=== PATIENT | male | born 1950 | race African-American/Black ===

== ENCOUNTER 2024-12-09 15:49 | Inpatient (IN) | payer MEDICARE, SELFPAY ==
[2024-12-06] VITALS (10 sets, daily range): BP systolic 75–148; BP diastolic 46–80; PULSE 63–109; BMI 25.2; BMI 25.0
[2024-12-06 12:01] LABS: % Basophils 0.7 % (0-2); % Immature Granulocytes 0.4 % (0-0.5); % Monocytes 11.6 % (1.7-9.3); % Neutrophils 70.3 % (42.2-75.2); Absolute Basophils 0.1 10^3/uL (0-0.2); Absolute Eosinophils 0.4 10^3/uL (0-0.7); Absolute Immature Granulocytes 0.1 10^3/uL (0-0.05); Absolute Lymphocytes 1.8 10^3/uL (1.2-3.4); Absolute Monocytes 1.5 10^3/uL (0.1-0.6); Absolute Neutrophils 9.1 10^3/uL (1.4-6.5); Hematocrit 41.5 % (39.0-52.0); Hemoglobin 14.2 g/dL (13.0-18.0); Mean Corp Hgb Conc. 34.2 g/dL (33.0-37.0); Mean Corpuscular Hgb 33.9 pg (27.0-31.0); Mean Platelet Volume 9.2 fL (7.4-10.4); Nucleated Red Blood Cells % 0 % (-); Platelet Count 260 10^3/uL (130-400); Red Blood Cell Count 4.19 10^6/uL (4.70-6.10); Red Cell Dist. Width 11.7 % (11.5-14.5); White Blood Cell Count 12.9 10^3/uL (4.8-10.8)
[2024-12-06 12:13] LABS: ALT (SGPT) 17 U/L (0-50); AST (SGOT) 34 U/L (17-59); Alkaline Phosphatase 58 U/L (38-126); Blood Urea Nitrogen 27 mg/dl (9-20); Calcium 9.3 mg/dl (8.4-10.2); Carbon Dioxide 28 mmol/L (22-30); Chloride 101 mmol/L (98-107); Glucose 126 mg/dl (70-99); Potassium 4.6 mmol/L (3.5-5.1); Sodium 138 mmol/L (135-145); Total Bilirubin 0.8 mg/dl (0.2-1.3); Total Protein 7.3 g/dl (6.3-8.2); eGFR 42.04
[2024-12-06 12:22] LABS: Troponin I 0.096 ng/ml
[2024-12-06] MEDS: NSS 1000 IV (13:13)
--- NOTE | 2024-12-06 13:18 | ED.GENMED ---
History of Present Illness
General
Chief Complaint: Weakness
Source: patient and spouse ( at bedside)
Exam Limitations: none
Time Seen by Provider: 12/06/24 12:40
Nursing documentation reviewed up to this point in time: agreed with
History of Present Illness
History of Present Illness:
Patient is a 74-year-old male with history of orthostatic hypotension, newly diagnosed amyloid presenting to the emergency department with syncopal events and exertional shortness of breath worse over the past 5 days. Patient states that over the
weekend he has had multiple episodes of sudden syncope. These do typically occur briefly after going from sitting to standing although he denies any prodrome prior to syncope including chest pain, shortness of breath, dizziness/lightheadedness,
nausea. Patient states he has hit his head. He reports that he has felt extremely weak and noticing significant shortness of breath with very minimal exertion over the past week as well.
No fevers. He has had mild cough with red streaking�his assistant community director started him on a Z-Jonathon a few days ago. He does report very intermittent and mild left sided chest pain although no clear exertional component to this. No abdominal pain or
tearing back pain. He does have some pain in his left lower back after one of the syncopal events this past weekend. No numbness/tingling or weakness in lower extremities.
He does have a history of orthostatic hypotension and syncope although since starting midodrine these become much less frequent.
Review of Systems
Review of Systems
Allergies reviewed?: Yes
All Other Systems: ROS reviewed and negative except as documented in HPI and ROS
Phy Exam
Physical Exam
Physical Exam:
Vitals: Patient's vital signs are stable
General: Patient is well appearing, no acute distress
Skin: Warm and dry, no rashes or lesions
Head: Normocephalic, atraumatic
Eyes: Sclera nonicteric. EOMs intact. No nystagmus.
Throat: Protecting airway
Neck: Normal ROM, no cervical spine tenderness, no meningismus
Cardiac: Regular rate and rhythm, no murmurs.
Pulm: Normal respiratory effort, no wheezes, rales, rhonchi heard on exam. O2 saturation 98 on room air
Abdomen: Abdomen soft and nontender.
Back: No midline spinal tenderness. Mild pain in left lower limb lumbar spine. No rash or ecchymoses
Extremities: No evidence of cyanosis or edema. Palpable DP pulses bilaterally
Neuro: AAOx3. Grossly intact.
Psychiatric: Normal affect.
Course
Orders/Labs/Results
Orders:
Orders
12/06/24 11:45
Electrocardiogram (*1) Urgent
Reason for Study: Syncope
12/06/24 11:46
EKG- Treatment ONCE
12/06/24 11:50
Complete Blood Count/With Diff Urgent
Comprehensive Metabolic Panel Urgent
NT-proBNP Urgent
Comment: ADD ON
Troponin I Urgent
12/06/24 13:02
CT Chest PE Study Urgent
Comment:
Reason For Exam: Exertional shortness of breath, syncope
0.9% Sodium Chloride 1000 ml [Nss] 1,000 ml IV BOLUS
12/06/24 13:03
CT Head W/o Iv Contrast Urgent
Comment:
Reason For Exam: unwitnessed syncope w/ head strike
12/06/24 Dinner
Regular
At Your Request: Full Participation
Does patient need a safe tray?: No
12/06/24 15:20
Electrocardiogram (*1) Urgent
Reason for Study: Syncope
EKG- Treatment ONCE
12/06/24 15:30
Troponin I Urgent
12/06/24 16:59
Acetaminophen [Tylenol] 650 mg PO NOW STA
Lidocaine [Lidocaine 4% Patch] 1 patch TOPICAL NOW STA
Apply Lidocaine patch(s) to:: back
12/06/24 19:29
Urine Culture Reflexed from UA [Urinalysis Reflex To Culture] Routine
12/06/24 19:35
Admit/Transfer Patient As Directed
Co-Sign Provider:
Level of Care: Observation services
Assign to:: Telemetry
Physician / Group: Julia Fernandez
Diagnosis: syncope, bradycardia, ARIAS
Reason for Telemetry: Arrhythmia
Date to Stop Telemetry: 12/09/24
Time to Stop Telemetry: 11:00
Reason for Hospitalization: syncope, bradycardia, ARIAS
PRN Pain Medication Management As Directed
May give lesser potent ordered pain med per pt: Yes
preference::
Protocol:: Medication orders for pain may be administered in a
manner that supports deferring to patient preference
when the pt is:
- Requesting an ordered lesser potent pain medication.
Least to most potent pain medications are defined
as: acetaminophen < NSAID < tramadol < opioids
(morphine, oxycodone, hydromorphone).
- Requesting a lesser dose of the same medication IF
ORDERED.
- Requesting a less intrusive route of administration
if both routes are prescribed by the provider (PO <
IV).
12/06/24 19:37
Code Status As Directed
Resuscitation Status: Full Code
12/06/24 19:54
COVID-19 Antigen Routine
Source: Nasal Swab
Influenza A+B Rapid Molecular Routine
NOEMY Source: Nasal Swab
Specimen Description:
12/06/24 21:08
Acetaminophen [Tylenol] 650 mg PO Q4HPRN PRN
Budesonide/Formoterol 80/4.5 [Symbicort 80/4.5 Mcg Inhaler] 2 puff INH R BIDPRN PRN
Lamotrigine [Lamictal] 50 mg PO BID
acoramidis [Attruby] See Dose Instructions PO BID
12/06/24 21:08
CARDIOLOGY CONSULT Routine
Consulting Provider: Darrell Iglesias
Was physician already notified: Yes
Activity As Directed
Activity Level: Out of Bed-Early Mobility
Intake/ Output As Directed
Frequency: Per unit guidelines
Orthostatic Vital Signs As Directed
Orthostatic VS Frequency: BID
Records Request [Obtain Records] As Directed
Dates of Information to be Released: 2024
Type of Information Requested: Entire Record
If Other, list type of info requested: all cardiac records
Obtain Records from: [facility]
Vital Signs As Directed
Frequency: Per unit guidelines
Weight As Directed
Frequency: Once
Comment: on admission
Pt Eval And Treat Routine
Activity Level: Out of Bed-Early Mobility
DX Deep Vein Thrombosis Video Routine
12/07/24 00:00
Heparin 5,000 units SC Q8
12/07/24 06:00
Echo 2D MMode Color/Doppler IN AM
Reason for Study: syncope
Basic Metabolic Panel IN AM
Complete Blood Count/No Diff IN AM
Cortisol, Random IN AM
Magnesium IN AM
TSH IN AM
12/07/24 08:00
Multivitamin [Theragran] 1 tablet PO DAILY
12/09/24 11:00
DC Protocol for Telemetry ONCE
Abnormal Lab Results
12/06/24 12/06/24
11:50 15:30
WBC 12.9 H 10^3/uL
(4.8-10.8)
RBC 4.19 L 10^6/uL
(4.70-6.10)
MCV 99.0 H fL
(80.0-94.0)
MCH 33.9 H pg
(27.0-31.0)
Abs Immat Gran (auto) 0.1 H 10^3/uL
(0-0.05)
Absolute Neuts (auto) 9.1 H 10^3/uL
(1.4-6.5)
Absolute Monos (auto) 1.5 H 10^3/uL
(0.1-0.6)
Lymphocytes % 14.0 L %
(20.5-51.1)
Monocytes % 11.6 H %
(1.7-9.3)
BUN 27 H mg/dl
(9-20)
Creatinine 1.7 H mg/dL
(0.7-1.3)
Glucose 126 H mg/dl
(70-99)
Troponin I 0.096 H* ng/ml 0.079 H* ng/ml
12/06/24 11:50
12/06/24 11:50
Vital Signs
Initial and Last Documented VS:
Initial Vital Signs
Temp Pulse Resp Pulse Ox
97.6 F 58 16 98
12/06/24 11:42 12/06/24 11:42 12/06/24 11:42 12/06/24 11:42
Last Documented Vital Signs
Temp Pulse Resp BP Pulse Ox
99.0 F 109 16 114/58 98
12/06/24 21:05 12/06/24 21:05 12/06/24 21:05 12/06/24 21:05 12/06/24 21:05
MDM/Problems Addressed
Differential Diagnosis Includes:
Not limited to: Cardiac arrhythmia, valvular abnormality including aortic stenosis, pulmonary embolism, pneumonia, acute coronary syndrome, acute, orthostatic hypotension,
MDM/Problems Addressed:
74-year-old male presenting with syncopal events and exertional shortness of breath, worse over the past few days. No exertional chest pain or lower extremity edema. No fever or cough. He does have lower back pain s/p fall although no neurologic
symptoms. Patient has stable vital signs and is afebrile on arrival. Physical exam as above. Patient well-appearing, in no distress. Cardia/pulmonary assessment unremarkable. Abdomen soft and nontender throughout. No lower extremity edema.
Mild tenderness in left paraspinal region without findings of cauda equina on exam. Basic labs were sent in triage significant for a leukocytosis of 12.9. Mild renal insufficiency noted which apparently is baseline. Troponin elevated at 0.096,
EKG without acute ischemic changes. Concern for cardiac syncope given no prodromal symptoms. Other considerations include pulmonary embolism, valvular abnormality. Lower suspicion for acute coronary syndrome although will trend troponin. Patient
was recently diagnosed with amyloid cardiomyopathy which may be contributing to majority of symptoms. Given syncopal events, exertional shortness of breath, and elevated troponin�will send patient for CTA chest. Will check head CT given syncopal
events with associated head strike. Will add on proBNP and trend troponin.
Update: CTA chest/head without acute findings. BNP of 1800�patient does not appear fluid overloaded on exam. Repeat troponin slightly decreased to 0.079. EKG remains without acute ischemic changes. Ultimately�do not suspect acute coronary
syndrome however given sudden syncopal events concern for cardiac dysrhythmia or valvular abnormality -feel patient to be admitted for cardiology consult, cardiac echo, and further monitoring. Patient admitted to hospital service in stable
condition.
Chronic conditions affecting care:
Orthostatic hypotension
Acute Exacerbation and/or Progression of Chronic Illness:
N/A
*Radiology
Radiology exam reviewed: preliminary read by ED provider (Head CT reviewed by me-no acute findings) and radiology read reviewed
*Pulse Oximetry
Patient hypoxic: no
*EKG
Interpreted by ED Provider?: Yes
EKG Intrepretation Date: 12/06/24
Interpretation: abnormal
Comparison EKG: no changes
Heart Rate: 69
Rate: normal
Rhythm: junctional
[place]: normal axis
Interval: normal QT interval
QRS Pattern: right bundle branch block
Ischemia: no ischemia
*Log Truck Driver Interpretation
Rate: normal
Interpretation: normal
Heart Rate: 56
Rhythm: sinus
*Critical Care Note
Total Time (30-74mins, 75-104mins- exclusive of procedures): Not Applicable
Patient Management
Discussion with other providers: Hospitalist
Escalation/DeEscalation of care consider admission/obs:
Admit for cardiology consult, cardiac echo, further monitoring
ED Attending Note
-
Portions of this chart may have been created with voice recognition software.� Occasional wrong word or��sound alike� substitutions may have occurred due to the inherent limitations of voice recognition software.
Discharge Plan
Departure
Patient Disposition: Admit
Date of Disposition: 12/06/24
Time of Disposition: 16:42
Presentation/result/management discussed w/ accepting MD/DO: Hospitalist
Discharge Problem:
Syncope, Exertional dyspnea, Elevated troponin
Interventions
Interventions:
*Risk Screen - Suicide Last Done: 12/06/24 21:32
*General Assessment Last Done: 12/06/24 13:05
*Neglect/Abuse Screening Last Done: 12/06/24 11:42
*ED- Fall Risk Assessment Last Done: 12/06/24 13:05
*ED COVID-19 Vaccine History Last Done: 12/06/24 21:32
*Nursing Disposition Last Done: 12/06/24 21:12
ED- Cardiac Assessment Last Done: 12/06/24 13:15
ED- Neurological Assessment Last Done: 12/06/24 13:15
ED- Pulmonary Assessment Last Done: 12/06/24 13:15
Discharge Date and Time
Discharge Date/Time: 12/06/24 21:13
[2024-12-06 13:50] LABS: NT-proBNP 1800 pg/ml
[2024-12-06 16:10] LABS: Troponin I 0.079 ng/ml
[2024-12-06] MEDS: TYLENOL 650 MG PO (17:11)
[2024-12-06] MEDS: LIDOCAINE 4% PATCH 1 PATCH TOPICAL (17:11)
--- NOTE | 2024-12-06 18:26 | HPS.HSE ---
Family Physician
-
Family Physician: Amrik Saavedra MD
Chief Complaint
-
syncope
History of Present Illness
Patient is a 74-year-old male with past medical history significant for amyloid cardiomyopathy, orthostatic hypotension, CKD, asthma and mood disorder who presented to [facility] ED following a syncopal episode. Patient reports syncopal
episodes in the past related to orthostatic hypotension starting around 2019 and placed on midodrine. He expresses these episodes have gotten worse and are different in the last 5 days. He reports associated exertional shortness of breath in the
last 5 days. Patient denies any prodrome prior to syncope including chest pain, heart palpitations or lightheadedness. Patient reports that he has noticed he is significantly weaker in the past week than previously. He does report falls with head
strike but does not feel he has ever been 'completely out,' when he has these recent episodes. Patient states he just completed a z-pack from digital sales director following increased congestion.
Medical History
Past Medical History
Past Medical History: Reports Other
Additional Past Medical History:
amyloid cardiomyopathy
orthostatic hypotension
CKD
asthma
mood disorder
Past Surgical History: Reports Other
Additional Past Surgical History:
vasectomy
nasal polyp extraction
Social History
Tobacco: Non-smoker
Alcohol: Occasional
Drug: None
Personal:
Living: With Family
Family History
Family History: Not pertinent
Allergies / Home Medications
Allergies reflects when Allergies were last updated in [facility].
Home Medications with original date entered in [facility]
Allergy/Medication List:
Allergies
Allergy/AdvReac Type Severity Reaction Status Date / Time
No Known Allergies Allergy Verified 12/06/24 11:45
Home Medications
acoramidis 356 mg tablet (Attruby) 712 mg PO BID 12/06/24
ascorbic acid (vitamin C) 500 mg tablet (Vitamin C) 500 mg PO DAILY 12/06/24
azithromycin 250 mg tablet 0 mg PO .COMPLEX 12/06/24
calcium carbonate 500 mg PO DAILY 12/06/24
cholecalciferol (vitamin D3) 25 mcg (1,000 unit) tablet (Vitamin D3) 25 mcg PO DAILY 12/06/24
lamotrigine 25 mg tablet (Lamictal) 50 mg PO BID 12/06/24
midodrine 10 mg tablet 10 mg PO TID 12/06/24
mometasone-formoterol HFA 100 mcg-5 mcg/actuation aerosol inhaler (Dulera) 2 puff inhalation R BIDPRN PRN sob 12/06/24
therapeutic multivitamin 1 tab PO DAILY 12/06/24
Review of Systems
-
History Source: Patient
Constitutional: Reports Fatigue
Respiratory: Reports Trouble Breathing (exertional shortness of breath)
Cardiac: Reports Syncope
Neurological: Reports Weakness
Physical Exam
Vital Signs
Vital Signs
Temp Pulse Resp BP Pulse Ox
97.6 F 55 16 126/65 99
12/06/24 11:42 12/06/24 14:45 12/06/24 14:45 12/06/24 14:00 12/06/24 14:45
Physical Exam
General: Well Developed, Well Nourished, No Apparent Distress, Comfortable and Conversant
HEENT: NormoCephalic, Moist mucous membranes, Atraumatic, [place] Conjunctivae, Nose Appears Normal and Ears Appear Normal
Respiratory: Clear and Non Labored Respirations
Cardiac: S1/S2, Regular Rhythm and Bradycardia
GI: Soft, Non Tender, Non Distended and Normal Bowel Sounds; No Organomegaly
Rectal: Deferred by Provider
Genito-urinary: Deferred by me
Musculoskeletal: No Clubbing, No Cyanosis and No Edema
Skin: IV/Catheter Site
Neuro: Awake, Alert, AO x 3 and Nonfocal/grossly intact
Psych: Calm and Intact Judgment/Insight
Laboratory Results
-
12/06/24 11:50
12/06/24 11:50
Laboratory Results
Total Bilirubin 0.8 mg/dl (0.2-1.3) 12/06/24 11:50
AST 34 U/L (17-59) 12/06/24 11:50
ALT 17 U/L (0-50) 12/06/24 11:50
Alkaline Phosphatase 58 U/L (38-126) 12/06/24 11:50
Troponin I 0.079 ng/ml H* 12/06/24 15:30
Data Reviewed
-
CT Scan: Report Reviewed by me (Chest: No acute disease of the chest. No pulmonary embolus. Acute mild T11 compression fracture. No retropulsed fracture fragments Mild bibasilar atelectasis versus scarring. Mild cardiomegaly Subcentimeter
hypodense left thyroid lesion likely a benign nodule. Nonurgent dedicated thyroid ultraso) and Other (Head: No acute intracranial abnormality noted. Mild atrophy. Minimal acute sinusitis. Moderate nonacute sinusitis.)
Medical Tests (Nuc Med, Echo, EKG etc): Report Reviewed by me (EKG: SINUS BRADYCARDIA SEPTAL INFARCT , AGE UNDETERMINED ST and T WAVE ABNORMALITY, CONSIDER INFERIOR ISCHEMIA)
Lab Data: Labs Reviewed by me (WBC 12.9, BUN 27, Creat 1.7, Trop 0.096 & 0.079, pro-BNP 1800)
Impression/Plan
-
IMPRESSION/PLAN:
#syncopal episode
WBC 12.9, Trop 0.096 & 0.079, pro-BNP 1800
EKG: SINUS BRADYCARDIA
SEPTAL INFARCT , AGE UNDETERMINED
ST and T WAVE ABNORMALITY, CONSIDER INFERIOR ISCHEMIA
- Admit to telemetry
- orthostatic VS
- check for infectious process (Influenza, covid, UA)
- Consult Cardiology
- request [facility] records
- ECHO
#amyloid cardiomyopathy
- continue acoramidis
#orthostatic hypotension
- continue midodrine
- check orthostatic VS
#CKD
BUN 27, Creat 1.7
unknown baseline
- monitor BMP
- request [facility] records
#asthma
- continue Dulera
#mood disorder
- continue Lamictal
Code status: full code
DVT prophylaxis: Heparin Sq
--- NOTE | 2024-12-06 19:10 | W.PN.UPDATE ---
Update Note
Progress Note Update
Patient seen in conjunction with [employer] CONTROL OPERATOR FORMING. I agree with the findings and physical. Clinical COVID assessment and plan listed otherwise.
Briefly, this is a 74-year-old with past medical history significant for orthostatic hypotension with history of recurrent syncopal episodes since 2019 who now presents to the emergency department with frequent syncopal episodes over the last 5 days.
Patient reports reports that he was recently diagnosed with ATTR amyloid and started on acromidis this in September. He denies symptoms of congestive heart failure including orthopnea PND lower extremity swelling or exertional dyspnea. Patient
actually reports that he was able to walk up a flight of stairs without feeling exertionally dyspneic. Reports are chronic for throat/chest congestion which appears to have worsened in the last couple of weeks. Due to these congestion patient was
also started on a Z-Jonathon recently. He has been told to taking copious quantities of fluid due to his history of orthostatic hypotension and is currently on midodrine 3 times daily which appears to have improved his symptoms until his recent
episodes. In the last 5 days he has had several falls which he says occurs when he gets from a sitting to a standing position or when he walks out of his bathroom. He denies loss of consciousness briefly denies having palpitations but he says he
may have a little bit of fluttering. He denies any chest pain. He has not seen any melena or hematochezia.
In the emergency department he was afebrile blood pressure was 126/65 with a pulse of 55 and was satting 99% on room air. His CBC shows a white count of 12.9 but otherwise unremarkable with a hemoglobin of 14.1 and normal platelet. Electrolytes
and BUN/creatinine were notable for a creatinine of 1.7. Otherwise normal. ECG shows sinus bradycardia at a rate of 53 as well as accelerated junctional episodes. BNP was elevated at 1800, troponin was 0.08 and stable x 2.
Patient had a CT PE study there was no pulmonary embolism. There were no parenchymal abnormalities.
On my exam patient was well-appearing, euvolemic, no JVD, no crackles, no peripheral edema on examination. Cardiac auscultation reveals no murmurs rubs or gallops. Abdomen was nontender nondistended and no signs of ascites. He has no evidence of
an acute infection on examination except for his mild leukocytosis.
Assessment and plan
Patient with history of orthostatic was had recent worsening of his symptoms without loss of consciousness. History of amyloidosis of the heart started on acromidis in september. Suspect possibility of bradycardia arrhythmia. Troponin stably
elevated without exertional chest pain. No ischemia on ECG. No history of CAD. Although he has been diagnosed with amiodarone as a shows no overt signs of congestive heart failure. Cannot rule out outflow obstruction or stenosis at this time.
Will admit for syncope evaluation and cardiology consult.
Admit to telemetry x 24 hours
- orthostatic vs
- trend troponins
- echo
- check tsh, cortisol
- ambulating sats
- check u/a covid and flu
- continue his midodrine for now
- cardiology consultation
- obtain records from [facility]
Cr 1.7, likely CKD per patient. Obtain records from [facility]. Avoid nephrotoxins
DVT PPX - heparin sq
Code status - Full Code
[2024-12-06 20:16] LABS: COVID-19 Antigen Negative (Negative)
--- NOTE | 2024-12-06 21:16 | PTCARENOTE ---
Pt transported from ED to 3W via stretcher. Pt independent from stretcher to bed, vitals obtained and stable, TELE monitor #13. Pt AAOX3, complains of no pain, oriented to room and call orozco within reach.
[2024-12-06] MEDS: LAMICTAL 50 MG PO (22:14)
[2024-12-06] MEDS: HEPARIN 5000 UNITS SC (23:52)
[2024-12-07] VITALS (7 sets, daily range): BP systolic 89–153; BP diastolic 55–81; PULSE 49–56
[2024-12-07 00:32] LABS: Urine Albumin Negative (Neg - Trace); Urine Bilirubin Negative (Negative); Urine Character Clear (Clear); Urine Color Yellow; Urine Glucose Negative (Negative); Urine Ketone Negative (Negative); Urine Leukocyte Negative (Negative); Urine Nitrite Negative (Negative); Urine Occult Blood Negative (Negative); Urine Urobilinogen Negative (Neg - 1+)
[2024-12-07] MEDS: TYLENOL 650 MG PO ×2 (01:38→20:22)
[2024-12-07 07:46] LABS: Hemoglobin 13.1 g/dL (13.0-18.0); Mean Corp Hgb Conc. 34.5 g/dL (33.0-37.0); Mean Corpuscular Hgb 33.4 pg (27.0-31.0); Mean Corpuscular Volume 96.9 fL (80.0-94.0); Mean Platelet Volume 9.3 fL (7.4-10.4); Platelet Count 249 10^3/uL (130-400); Red Blood Cell Count 3.92 10^6/uL (4.70-6.10); Red Cell Dist. Width 11.6 % (11.5-14.5); White Blood Cell Count 8.7 10^3/uL (4.8-10.8)
--- NOTE | 2024-12-07 08:05 | CON.CAR ---
Addendum entered and electronically signed by Armani Medina MD 12/07/24 13:36:
74 yo male with PMH of cardiac amyloidosis, with autonomic dysfunction, and orthostatic hypotension admitted with weakness. There is mention of syncope in chart, but patient reports he never actually passed out. He feels weak, and then sits down.
Some dizziness, no chest pain. Exam with RRR, no murmurs,no edema. Tele: SB 50s. EKG: SB 53, bi-atrial abnl. TnI peak 0.096.
Symptoms are likely due to orthostatic hypertension, autonomic dysfunction in setting of amlyoid. He actually feels worse since starting Attruby. Would hold this med until he follows up with his amyloid specialist. Continue midodrine and
orthostatic precautions.
Elevated troponin. Suspect acute non-ischemic myocardial injury in setting of amyloid and orthostatic hypotension.
Original Note:
Consultation
Consultation Request
Date/Time Consultation Requested: 12/06/2024 21:00
Date/Time Consultation Performed: 12/07/2024 08:00
Requesting Provider: KASEY Field
Performing Provider: KASEY Olsen for Dr. Medina
Reason for Consultation: Orthostatic hypotension, abnormal troponin
Medical History
-
Chief Complaint: Syncope
History of Present Illness:
Zoltan Ayers is a 74-year-old male (known to Dr. Zoltan Denson from [place]) with cardiac amyloid, chronic hypotension, orthostatic hypotension, CKD, and asthma who presented to the emergency department with a chief complaint of falls. He had
multiple episodes in the past with hypotension. Some of it was thought to be orthostatic and other episodes were thought to be in the setting of dehydration. He has been on midodrine for greater than 1 year. Over the past week he has had multiple
falls. He denies loss of consciousness. He reports his legs give out. This occurs with ambulation or going from a sitting to standing position. He does not have any shortness of breath. He does not have any chest pain. On telemetry he has
sinus bradycardia. This is chronic for him. He wore an outpatient heart monitor that did not have any findings. CT PE study did not have any acute findings.
Past Medical History
Past Medical History: Asthma, Renal Failure (CKD) and Other (Amyloid cardiomyopathy, orthostatic hypotension)
Past Surgical History: Urological
Social History
Tobacco: Non-Smoker
Alcohol: Occasional
Drug: None
Personal:
Living: With Family
Employment: Retired ([employer])
Family History
Family History: Reviewed & Not Pertinent
Allergies / Home Medications
Allergy/AdvReac Type Severity Reaction Status Date / Time
No Known Allergies Allergy Verified 12/06/24 11:45
�Medication �Instructions �Recorded �Confirmed �Type
acoramidis 356 mg tablet (Attruby) 712 mg PO BID 12/06/24 12/06/24 History
ascorbic acid (vitamin C) 500 mg 500 mg PO DAILY 12/06/24 12/06/24 History
tablet (Vitamin C)
azithromycin 250 mg tablet 0 mg PO .COMPLEX 12/06/24 12/06/24 History
calcium carbonate 500 mg PO DAILY 12/06/24 12/06/24 History
cholecalciferol (vitamin D3) 25 25 mcg PO DAILY 12/06/24 12/06/24 History
mcg (1,000 unit) tablet (Vitamin
D3)
lamotrigine 25 mg tablet (Lamictal) 50 mg PO BID 12/06/24 12/06/24 History
midodrine 10 mg tablet 10 mg PO TID 12/06/24 12/06/24 History
mometasone-formoterol HFA 100 2 puff inhalation R BIDPRN PRN sob 12/06/24 12/06/24 History
mcg-5 mcg/actuation aerosol
inhaler (Dulera)
therapeutic multivitamin 1 tab PO DAILY 12/06/24 12/06/24 History
Review of Systems
-
History Source: Patient
All other systems: Negative unless noted
Constitutional: Fatigue
EENT: No Symptoms
Respiratory: No Symptoms
Cardiac: Syncope
Abdomen/GI: No Symptoms
: No Symptoms
Musculoskeletal: No Symptoms
Skin: No Symptoms
Neurological: Weakness
Endocrine: No Symptoms
Hematologic/Lymphatic: No Symptoms
Physical Exam
Vital Signs
Temp Pulse Resp BP Pulse Ox
98.3 F 47 16 122/66 97
12/07/24 07:28 12/07/24 07:28 12/07/24 07:28 12/07/24 07:28 12/07/24 07:28
Lab Results
12/07/24 07:14
Troponin I 0.079 ng/ml H* 12/06/24 15:30
[id number]-[id number] Pept 1800 pg/ml 12/06/24 11:50
Physical Exam
General: Well Developed, Well Nourished, No Apparent Distress and Comfortable
HEENT: Normocephalic, Anicteric and Moist Mucous Membranes
Respiratory: Clear and Non Labored Respirations
Cardiac: S1/S2 and Murmur (I/ soft systolic murmur)
Breast: Deferred by me
GI: Soft, Non Tender, Non Distended and Normal Bowel Sounds
Rectal: Deferred by Provider
Genito-urinary: No Costovertebral Tender
Musculoskeletal: No Clubbing, No Cyanosis and No Edema
Skin: Warm and Dry
Neuro: AO x 3
Hematologic/Lymphatic: No Lymphadenopathy
Psych: Calm
Impression / Plan
-
I/P: 74M with cardiac amyloid, chronic hypotension, orthostatic hypotension, CKD, and asthma who presented to the emergency department with a chief complaint of syncope
Outpatient telephone service representative: Dr. Zoltan Denson ([place]), records have been requested
Falls
-He endorses weakness without loss of consciousness
-Follow telemetry
-Some episodes sound like orthostasis other episodes sound like autonomic dysfunction in the setting of amyloid
-Echocardiogram today
Abnormal troponin, type unknown
-Peak on admission, 0.096
-Chest pain-free
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
CKD, baseline unknown, await records
Incomplete right bundle branch block, while in junctional rhythm
Thyroid nodule, TSH normal, per primary
Asthma, no acute exacerbation
Data Reviewed
-
EKG: Report Reviewed by me (Sinus bradycardia, inferior T wave abnormality, rate 53)
CT Scan: Report Reviewed by me (As above)
Labs: Labs Reviewed by me
Old Records: Requested
[2024-12-07] MEDS: HEPARIN 5000 UNITS SC ×2 (08:14→16:13)
[2024-12-07] MEDS: ProAmatine 10 MG PO ×3 (08:15→16:13)
[2024-12-07] MEDS: LAMICTAL 50 MG PO ×2 (08:15→20:22)
[2024-12-07] MEDS: THERAGRAN 1 TABLET PO (08:15)
[2024-12-07 08:30] LABS: Blood Urea Nitrogen 22 mg/dl (9-20); Calcium 9.1 mg/dl (8.4-10.2); Carbon Dioxide 27 mmol/L (22-30); Chloride 104 mmol/L (98-107); Estimated Creatinine Clearance 52 ml/min; Glucose 84 mg/dl (70-99); Magnesium 2.3 mg/dl (1.6-2.3); Potassium 4.8 mmol/L (3.5-5.1); Sodium 139 mmol/L (135-145); eGFR 58.01
[2024-12-07 09:02] LABS: Cortisol, Random 12.1 ug/dl; TSH 2.13 uIU/ml (0.47-4.68)
--- NOTE | 2024-12-07 10:17 | CM ---
Addendum entered by Renetta Jensen 12/07/24 10:20:
[facility] form explained & signed. In chart
Original Note:
Patient seen at bedside
IA completed
Lives with in 2 story home, no steps to enter, flight second floor
PLOF: independent, no device
Denies DME
Denies VN/Rehab
PCP: Amrik Saavedra
Pharmacy: [facility], [facility] [address]
PLAN: home, no anticipated needs
--- NOTE | 2024-12-07 11:40 | PTCARENOTE ---
Pt c/o constipation, made aware, new order provided, see MAR.
[2024-12-07] MEDS: MIRALAX 17 GRAMS PO (11:55)
--- NOTE | 2024-12-07 12:45 | W.PN.HOSP.TC ---
Today's Communication/Plan
-
Echocardiogram and cardiology Cx
Assessment / Plan
Assessment / Plan
Impression;
Patient 72 years old with a history of a myeloid cardiomyopathy, orthostatic hypotension, CKD, asthma, mood disorder who came to the ER with presyncopal event, denies loss of consciousness.
Found to have positive orthostatic, cardiology consult
Assessment/plan
syncopal episode
Long history of orthostatic hypotension
Contributed with dehydration and low oral intake.
Creatinine was elevated which improved
WBC 12.9, Trop 0.096 & 0.079, pro-BNP 1800
EKG: SINUS BRADYCARDIA
SEPTAL INFARCT , AGE UNDETERMINED
ST and T WAVE ABNORMALITY, CONSIDER INFERIOR ISCHEMIA
Continue color television console monitor
Seen by cardiology.
Echocardiogram shows:
Moderate concentric left ventricular hypertrophy.
Left ventricular ejection fraction is 55-60%.
Thickened aortic valve with normal leaflet excursion.
Trace mitral regurgitation.
Mild tricuspid regurgitation.
With strain patterna nd LVH consider amyloidosis.
Physical therapy:
Amyloid cardiomyopathy
- continue acoramidis
Orthostatic hypotension
- continue midodrine 10 mg 3 times daily
- Compression socking
Acute renal failure on CKD stage IIIa
Creatinine was elevated at 1.7 on admission.
Improved
History of asthma
- continue Dulera
Mood disorder
- continue Lamictal
CODE STATUS: Full code
DVT prophylaxis: Heparin
Diet: Regular diet
Total time spent on today's encounter was 65 minutes which included time spent in counseling the patient/family regarding diagnosis and treatment plan as listed above, goals of care, and symptom management. Case was discussed with nursing staff,
specialists, and care coordinators/case management. All labs and imaging personally reviewed by me. Remainder the time spent in detailed review of previous records, lab data, imaging, and other medical provider documentation.
Anticipated Discharge: Within 24 hours
Subjective/Interval History
-
Date of Service: December 07, 2024
Patient seen and examined at bedside, still with positive orthostatics.
Seen by cardiology.
Echocardiogram done today, patient denies any chest pain or shortness of breath, no abdominal pain, no nausea, no vomiting, no diarrhea or constipation.
Objective Data
-
Labs:
Laboratory Results
12/07/24
07:14
WBC 8.7
Hgb 13.1
Hct 38.0 L
Plt Count 249
Sodium 139
Potassium 4.8
Chloride 104
Carbon Dioxide 27
BUN 22 H
Creatinine 1.3
Glucose 84
Calcium 9.1
Vital Signs:
Vital Signs
Temp Pulse Resp BP Pulse Ox
98.9 F 55 17 133/71 96
12/07/24 11:21 12/07/24 11:54 12/07/24 11:21 12/07/24 11:54 12/07/24 11:21
I&O
12/06/24 12/07/24 12/08/24
06:59 06:59 06:59
Intake Total 480 / 480
Output Total 1050 / 1050
Balance -570 / -570
Physical Exam
-
General: Well Developed, Well Nourished, No Apparent Distress and Comfortable
HEENT: Normocephalic, Atraumatic, Moist Mucous Membranes, No Ptosis, PERRLA and Nose Appears Normal
Respiratory: Clear to Auscultation and Non Labored Respirations
Cardiac: Regular Rhythm and S1/S2
Breast: Deferred by me
GI: Soft, Nontender, Nondistended and Normal Bowel Sounds
Genito-urinary: No Costovertebral Tender
Musculoskeletal: No Clubbing, No Cyanosis and No Edema
Skin: Warm
Neuro: Awake, Alert, Oriented, AO x 3 and No Motor Deficits
Psych: Calm
Data Reviewed
-
Diagnostic Radiology: Image personally visualized and interpreted and Report Reviewed by me
CT Scan: Image personally visualized and interpreted and Report Reviewed by me
Ultrasound: Image personally visualized and interpreted and Report Reviewed by me
MRI: Image personally visualized and interpreted and Report Reviewed by me
Medical Tests (Nuc Med, Echo etc): Image personally visualized and interpreted and Report Reviewed by me
Labs: Labs Reviewed by me
Old Records: Reviewed
--- NOTE | 2024-12-07 14:27 | PTCARENOTE ---
pt c/o 8/10 pain throughout right knee. MD made aware. MD at bedside.
[2024-12-08] VITALS (8 sets, daily range): BP systolic 72–153; BP diastolic 47–85; PULSE 47–85; O2SAT 99
[2024-12-08] MEDS: HEPARIN SC (00:34)
[2024-12-08] MEDS: HEPARIN 5000 UNITS SC ×4 (01:38→22:57)
[2024-12-08] MEDS: TYLENOL 650 MG PO ×3 (01:38→15:54)
[2024-12-08 07:33] LABS: Hemoglobin 12.9 g/dL (13.0-18.0); Mean Corp Hgb Conc. 34.9 g/dL (33.0-37.0); Mean Corpuscular Hgb 33.4 pg (27.0-31.0); Mean Corpuscular Volume 95.9 fL (80.0-94.0); Mean Platelet Volume 9.2 fL (7.4-10.4); Platelet Count 262 10^3/uL (130-400); Red Blood Cell Count 3.86 10^6/uL (4.70-6.10); Red Cell Dist. Width 11.6 % (11.5-14.5); White Blood Cell Count 10.1 10^3/uL (4.8-10.8)
[2024-12-08 07:39] LABS: Blood Urea Nitrogen 20 mg/dl (9-20); Calcium 9.1 mg/dl (8.4-10.2); Carbon Dioxide 25 mmol/L (22-30); Chloride 104 mmol/L (98-107); Estimated Creatinine Clearance 52 ml/min; Glucose 90 mg/dl (70-99); Potassium 4.6 mmol/L (3.5-5.1); Sodium 139 mmol/L (135-145); eGFR 58.01
[2024-12-08] MEDS: LAMICTAL 50 MG PO ×2 (07:52→20:56)
[2024-12-08] MEDS: ProAmatine 10 MG PO (07:52)
[2024-12-08] MEDS: THERAGRAN 1 TABLET PO (07:53)
--- NOTE | 2024-12-08 08:30 | W.PN.CD ---
Today's Communication / Plan
-
Treat knee pain
Up and walk
If symptoms improved, ok to discharge off Attruby
If still symptomatic, increase Midodrine to 15 TID
Follow-up with primary clipman
Impression / Plan
-
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
Outpatient clipman: Dr. Zoltan Denson ([place]), records have been requested
Presyncope
-He endorses weakness without loss of consciousness, sounds presyncopal. Likely due to orthostatic hypertension, autonomic dysfunction in setting of amyloid
-Up and walk today to see how symptoms are
-Stop Attruby as he feels worse since starting
-Continue midodrine 10 tid. Uptitrate if he is still symptomatic
Knee pain
-He thinks it is a gout flare
-Treatment per primary
Abnormal troponin
-Suspect acute non-ischemic myocardial injury in setting of amyloid and orthostatic hypotension.
-Trop downtrended. ECG nonishcemic. Asymptomatic.
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
CKD, baseline unknown, await records
Incomplete right bundle branch block, while in junctional rhythm
Thyroid nodule, TSH normal, per primary
Asthma, no acute exacerbation
Subjective: Has R knee pain and swelling. Has not been up and walking around due to out of bed restrictions.
Physical Exam
Vital Signs/Labs
Vital Signs
Temp Pulse Resp BP Pulse Ox
98.2 F 49 14 134/70 97
12/08/24 07:44 12/08/24 07:44 12/08/24 07:44 12/08/24 07:52 12/08/24 07:44
12/07/24 12/08/24 12/09/24
06:59 06:59 06:59
Actual Weight 79.067 kg
04/01/25 06:29
12/08/24 06:29
Magnesium 2.3 mg/dl (1.6-2.3) 12/07/24 07:14
TSH 2.13 uIU/ml (0.47-4.68) 12/07/24 07:14
12/06/24
11:50
Kjb-[id number]-Xxaexvpiddp Pept 1800
LAB Results
12/06/24 12/06/24
11:50 15:30
Troponin I 0.096 H* 0.079 H*
Physical Exam
Constitutional: No acute distress and Comfortable
Cardiovascular: Rhythm & rate is regular, Pedal edema is absent, S1S2 is normal and Murmur/rub/gallop absent
Respiratory: Respiratory effort normal and Lungs clear to auscul.
Neuro/Psych: AO x 3
Data Reviewed
-
Date of Service: December 08, 2024
Medical Decision Making: Reviewed Test Results, Independent Historian Assessment, Test Interpretation and Review of Case with other Provider
EKG: Tracing Personally Visualized and interpreted
Echo: Report Reviewed by me
Labs: Labs Reviewed by me
--- NOTE | 2024-12-08 10:20 | CM ---
Patient seen at bedside.
PT to eval
PLAN: home when medically stable, await PT eval
to transport
[2024-12-08] MEDS: ProAmatine 15 MG PO ×2 (12:24→18:25)
--- NOTE | 2024-12-08 15:13 | W.PN.HOSP.TC ---
Today's Communication/Plan
-
Started colchicine
Assessment / Plan
Assessment / Plan
Impression;
Patient 72 years old with a history of a myeloid cardiomyopathy, orthostatic hypotension, CKD, asthma, mood disorder who came to the ER with presyncopal event, denies loss of consciousness.
Found to have positive orthostatic, cardiology consulted, cardiology recommending to increase midodrine to 15 mg 3 times daily, also patient noted to have acute gout flareup on the right knee and started on colchicine, physical recommended home PT.
Assessment/plan
syncopal episode
Long history of orthostatic hypotension
Contributed with dehydration and low oral intake.
Creatinine was elevated which improved
WBC 12.9, Trop 0.096 & 0.079, pro-BNP 1800
EKG: SINUS BRADYCARDIA
SEPTAL INFARCT , AGE UNDETERMINED
ST and T WAVE ABNORMALITY, CONSIDER INFERIOR ISCHEMIA
Continue conveyor monitor
Seen by cardiology.
Echocardiogram shows:
Moderate concentric left ventricular hypertrophy.
Left ventricular ejection fraction is 55-60%.
Thickened aortic valve with normal leaflet excursion.
Trace mitral regurgitation.
Mild tricuspid regurgitation.
With strain patterna nd LVH consider amyloidosis.
12/08
Still positive orthostatics, midodrine increased
Physical therapy recommending home PT
Acute right knee pain possible gout flareup.
Started on colchicine
Amyloid cardiomyopathy
- continue acoramidis
Orthostatic hypotension
- continue midodrine 10 mg 3 times daily
- Compression socking
Acute renal failure on CKD stage IIIa
Creatinine was elevated at 1.7 on admission.
Improved
History of asthma
- continue Dulera
Mood disorder
- continue Lamictal
CODE STATUS: Full code
DVT prophylaxis: Heparin
Diet: Regular diet
Total time spent on today's encounter was 65 minutes which included time spent in counseling the patient/family regarding diagnosis and treatment plan as listed above, goals of care, and symptom management. Case was discussed with nursing staff,
specialists, and care coordinators/case management. All labs and imaging personally reviewed by me. Remainder the time spent in detailed review of previous records, lab data, imaging, and other medical provider documentation.
Anticipated Discharge: Within 24 hours
Subjective/Interval History
-
Date of Service: December 08, 2024
Patient still positive for statics.
Discussed with cardiology will increase midodrine to 15 mg 3 times daily.
Still complaining of right knee pain, possible gout attack, started on colchicine.
Physical therapy recommended home PT.
Objective Data
-
Labs:
Laboratory Results
12/08/24
06:29
WBC 10.1
Hgb 12.9 L
Hct 37.0 L
Plt Count 262
Sodium 139
Potassium 4.6
Chloride 104
Carbon Dioxide 25
BUN 20
Creatinine 1.3
Glucose 90
Calcium 9.1
Vital Signs:
Vital Signs
Temp Pulse Resp BP Pulse Ox
97.9 F 85 16 120/75 99
12/08/24 11:25 12/08/24 11:25 12/08/24 11:25 12/08/24 11:25 12/08/24 11:25
I&O
12/07/24 12/08/24 12/09/24
06:59 06:59 06:59
Intake Total 480 / 480 960 / 960
Output Total 1050 / 1050 1375 / 1375
Balance -570 / -570 -415 / -415
Physical Exam
-
General: Well Developed, Well Nourished, No Apparent Distress and Comfortable
HEENT: Normocephalic, Atraumatic, Moist Mucous Membranes, No Ptosis, PERRLA and Nose Appears Normal
Respiratory: Clear to Auscultation and Non Labored Respirations
Cardiac: Regular Rhythm and S1/S2
Breast: Deferred by me
GI: Soft, Nontender, Nondistended and Normal Bowel Sounds
Genito-urinary: No Costovertebral Tender
Musculoskeletal: Other (Right knee tenderness)
Skin: Warm
Neuro: Awake, Alert, Oriented, AO x 3 and No Motor Deficits
Psych: Calm
Data Reviewed
-
Diagnostic Radiology: Image personally visualized and interpreted and Report Reviewed by me
CT Scan: Image personally visualized and interpreted and Report Reviewed by me
Ultrasound: Image personally visualized and interpreted and Report Reviewed by me
MRI: Image personally visualized and interpreted and Report Reviewed by me
Medical Tests (Nuc Med, Echo etc): Image personally visualized and interpreted and Report Reviewed by me
Labs: Labs Reviewed by me
Old Records: Reviewed
[2024-12-08] MEDS: COLCHICINE 1.2 MG PO (15:55)
[2024-12-08] MEDS: TORADOL 15 MG IV ×2 (16:05→22:57)
[2024-12-08] MEDS: COLCHICINE 0.6 MG PO (18:25)
[2024-12-09] VITALS (9 sets, daily range): BP systolic 78–157; BP diastolic 47–82; PULSE 46–83
[2024-12-09] MEDS: ProAmatine 15 MG PO ×3 (08:18→17:10)
[2024-12-09] MEDS: LAMICTAL 50 MG PO ×2 (08:18→21:08)
[2024-12-09] MEDS: THERAGRAN 1 TABLET PO (08:18)
[2024-12-09] MEDS: HEPARIN 5000 UNITS SC ×2 (08:19→17:09)
[2024-12-09] MEDS: COLCHICINE 0.6 MG PO (08:20)
[2024-12-09 08:22] LABS: Hematocrit 36.9 % (39.0-52.0); Hemoglobin 12.9 g/dL (13.0-18.0); Mean Corpuscular Hgb 33.8 pg (27.0-31.0); Mean Corpuscular Volume 96.6 fL (80.0-94.0); Mean Platelet Volume 9.3 fL (7.4-10.4); Platelet Count 284 10^3/uL (130-400); Red Blood Cell Count 3.82 10^6/uL (4.70-6.10); Red Cell Dist. Width 11.4 % (11.5-14.5); White Blood Cell Count 8.8 10^3/uL (4.8-10.8)
[2024-12-09 09:01] LABS: Blood Urea Nitrogen 27 mg/dl (9-20); Carbon Dioxide 25 mmol/L (22-30); Chloride 102 mmol/L (98-107); Estimated Creatinine Clearance 49 ml/min; Glucose 88 mg/dl (70-99); Potassium 4.9 mmol/L (3.5-5.1); Sodium 137 mmol/L (135-145); eGFR 53.07
--- NOTE | 2024-12-09 09:44 | CM ---
Patient seen at bedside
PT rec HH
options reviewed-prefers [facility] - notified [facility] liaison & referral placed in [facility]
PLAN: Home with [facility]
to transport
--- NOTE | 2024-12-09 10:26 | W.PN.HOSP.TC ---
Today's Communication/Plan
-
Discharge home today with home physical therapy
Assessment / Plan
Assessment / Plan
Impression;
Patient 72 years old with a history of a myeloid cardiomyopathy, orthostatic hypotension, CKD, asthma, mood disorder who came to the ER with presyncopal event, denies loss of consciousness.
Found to have positive orthostatic, cardiology consulted, cardiology recommending to increase midodrine to 15 mg 3 times daily, also patient noted to have acute gout flareup on the right knee and started on colchicine, physical recommended home PT.
Assessment/plan
syncopal episode
Long history of orthostatic hypotension
Contributed with dehydration and low oral intake.
Creatinine was elevated which improved
WBC 12.9, Trop 0.096 & 0.079, pro-BNP 1800
EKG: SINUS BRADYCARDIA
SEPTAL INFARCT , AGE UNDETERMINED
ST and T WAVE ABNORMALITY, CONSIDER INFERIOR ISCHEMIA
Continue court monitor
Seen by cardiology.
Echocardiogram shows:
Moderate concentric left ventricular hypertrophy.
Left ventricular ejection fraction is 55-60%.
Thickened aortic valve with normal leaflet excursion.
Trace mitral regurgitation.
Mild tricuspid regurgitation.
With strain patterna nd LVH consider amyloidosis.
4/
Still positive orthostatics, midodrine increased
Physical therapy recommending home PT
4/
Continue midodrine 15 mg 3 times daily.
Discharge home today with home physical
Acute right knee pain possible gout flareup.
Started on colchicine and Toradol.
Pain improved
Amyloid cardiomyopathy
- continue acoramidis
Orthostatic hypotension
- continue midodrine 10 mg 3 times daily
- Compression socking
Acute renal failure on CKD stage IIIa
Creatinine was elevated at 1.7 on admission.
Improved
History of asthma
- continue Dulera
Mood disorder
- continue Lamictal
CODE STATUS: Full code
DVT prophylaxis: Heparin
Diet: Regular diet
Total time spent on today's encounter was 65 minutes which included time spent in counseling the patient/family regarding diagnosis and treatment plan as listed above, goals of care, and symptom management. Case was discussed with nursing staff,
specialists, and care coordinators/case management. All labs and imaging personally reviewed by me. Remainder the time spent in detailed review of previous records, lab data, imaging, and other medical provider documentation.
Anticipated Discharge: Today
Subjective/Interval History
-
Date of Service: December 09, 2024
Patient seen and examined at bedside, denies any chest pain or shortness of breath, no abdominal pain, no nausea, no vomiting, no diarrhea or constipation.
Right knee pain improved with Toradol and colchicine.
Discharge home today.
Objective Data
-
Labs:
Laboratory Results
12/09/24
07:52
WBC 8.8
Hgb 12.9 L
Hct 36.9 L
Plt Count 284
Sodium 137
Potassium 4.9
Chloride 102
Carbon Dioxide 25
BUN 27 H
Creatinine 1.4 H
Glucose 88
Calcium 9.0
Vital Signs:
Vital Signs
Temp Pulse Resp BP Pulse Ox
98.2 F 43 14 115/61 98
12/09/24 07:15 12/09/24 07:15 12/09/24 07:15 12/09/24 07:15 12/09/24 07:15
I&O
12/08/24 12/09/24 12/10/24
06:59 06:59 06:59
Intake Total 960 / 960 1740 / 1740
Output Total 1375 / 1375 800 / 800
Balance -415 / -415 940 / 940
Physical Exam
-
General: Well Developed, Well Nourished, No Apparent Distress and Comfortable
HEENT: Normocephalic, Atraumatic, Moist Mucous Membranes, No Ptosis, PERRLA and Nose Appears Normal
Respiratory: Clear to Auscultation and Non Labored Respirations
Cardiac: Regular Rhythm and S1/S2
Breast: Deferred by me
GI: Soft, Nontender, Nondistended and Normal Bowel Sounds
Genito-urinary: No Costovertebral Tender
Musculoskeletal: Other (Improved right knee tenderness)
Skin: Warm
Neuro: Awake, Alert, Oriented, AO x 3 and No Motor Deficits
Psych: Calm
Data Reviewed
-
Diagnostic Radiology: Image personally visualized and interpreted and Report Reviewed by me
CT Scan: Image personally visualized and interpreted and Report Reviewed by me
Ultrasound: Image personally visualized and interpreted and Report Reviewed by me
MRI: Image personally visualized and interpreted and Report Reviewed by me
Medical Tests (Nuc Med, Echo etc): Image personally visualized and interpreted and Report Reviewed by me
Labs: Labs Reviewed by me
Old Records: Reviewed
--- NOTE | 2024-12-09 10:35 | W.DCSUMMARY ---
Addendum entered and electronically signed by Dennis Fan MD 12/10/24 11:29:
Patient supposed to be discharged on December 09, 2024
But stayed overnight for concern of junctional rhythm and bradycardia.
Patient seen and examined at bedside, denies any chest pain or shortness of breath, no abdominal pain, no nausea, no vomiting, no diarrhea or constipation.
Cleared for discharge today by cardiology and follow-up as out
Day of discharge December 10, 2024.
Original Note:
Discharge Summary
Discharge Data
Date of Admission: 12/06/24
Date of Discharge: 12/09/24
-
Pending Results: No
Hospital Course
Impression;
Patient 72 years old with a history of a myeloid cardiomyopathy, orthostatic hypotension, CKD, asthma, mood disorder who came to the ER with presyncopal event, denies loss of consciousness.
Found to have positive orthostatic, cardiology consulted, cardiology recommending to increase midodrine to 15 mg 3 times daily, also patient noted to have acute gout flareup on the right knee and started on colchicine, physical recommended home PT.
Assessment/plan
syncopal episode
Long history of orthostatic hypotension
Contributed with dehydration and low oral intake.
Creatinine was elevated which improved
WBC 12.9, Trop 0.096 & 0.079, pro-BNP 1800
EKG: SINUS BRADYCARDIA
SEPTAL INFARCT , AGE UNDETERMINED
ST and T WAVE ABNORMALITY, CONSIDER INFERIOR ISCHEMIA
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
Seen by cardiology.
Echocardiogram shows:
Moderate concentric left ventricular hypertrophy.
Left ventricular ejection fraction is 55-60%.
Thickened aortic valve with normal leaflet excursion.
Trace mitral regurgitation.
Mild tricuspid regurgitation.
With strain patterna nd LVH consider amyloidosis.
12/08
Still positive orthostatics, midodrine increased
Physical therapy recommending home PT
12/09
Continue midodrine 15 mg 3 times daily.
Discharge home today with home physical
Acute right knee pain possible gout flareup.
Started on colchicine and Toradol.
Pain improved
Amyloid cardiomyopathy
- continue acoramidis
Orthostatic hypotension
- continue midodrine 10 mg 3 times daily
- Compression socking
Acute renal failure on CKD stage IIIa
Creatinine was elevated at 1.7 on admission.
Improved
History of asthma
- continue Dulera
Mood disorder
- continue Lamictal
CODE STATUS: Full code
DVT prophylaxis: Heparin
Diet: Regular diet
Total time spent on today's encounter was 40 minutes which included time spent in counseling the patient/family regarding diagnosis and treatment plan as listed above, goals of care, and symptom management. Case was discussed with nursing staff,
specialists, and care coordinators/case management. All labs and imaging personally reviewed by me. Remainder the time spent in detailed review of previous records, lab data, imaging, and other medical provider documentation.
Anticipated Discharge: Today
Discharge Plan
-
Patient Disposition: Home with Home Care
Discharge Diagnosis/Procedures: Syncope, orthostatic hypotension, gout flareup
Condition: Good
Diet: As tolerated
Activity: As tolerated
Other Services: PT and OT
Referrals:
Amrik Saavedra MD [Family Provider] -
Darrell Iglesias MD [Active] - in two to three weeks
Prescriptions:
New
midodrine 5 mg Tablet
15 mg PO TID @ 0800,1200,1700 30 Days Qty: 270 0RF
colchicine 0.6 mg Tablet
0.6 mg PO DAILY Qty: 30 0RF
ketorolac 10 mg tablet
10 mg PO Q6H PRN (Reason: Pain) 5 Days Qty: 20 0RF
Continued
Dulera 100-5 mcg/actuation Hfa Aerosol Inhaler
2 puff INHALATION R BIDPRN PRN (Reason: sob)
therapeutic multivitamin Tablet
1 tab PO DAILY
lamotrigine [Lamictal] 25 mg Tablet
50 mg PO BID
calcium carbonate 500 mg calcium (1,250 mg) Tablet
500 mg PO DAILY
ascorbic acid (vitamin C) [Vitamin C] 500 mg Tablet
500 mg PO DAILY
cholecalciferol (vitamin D3) [Vitamin D3] 25 mcg (1,000 unit) Tablet
25 mcg PO DAILY
Attruby 356 mg Tablet
712 mg PO BID
Discontinued
azithromycin 250 mg Tablet
0 mg PO .COMPLEX
Rx Instructions:
For 250 mg dose pack: take 500 mg today (day 1), then 250 mg for 4 days (days 2-5)
midodrine 10 mg Tablet
10 mg PO TID
Discharge Orders:
Discharge Patient (As Directed); Ordered 12/09/24
Ordered By: Dennis Fan
Discharge Date and Time
Print Language: TURKISH
--- NOTE | 2024-12-09 13:07 | VNURNOTE ---
Property Disposal Manager met with patient to discuss [facility] nurse/therapy, visits, schedule and homebound status. Patient is agreeable and understands that visits at home will be 2-3 x per week to assess and teach medical management.
[facility] contact information provided. Patient is aware that [facility] will contact them for start of care after discharge from .
[facility] referral completed in [facility] Port.
--- NOTE | 2024-12-09 14:13 | W.PN.CD ---
Addendum entered and electronically signed by Brett Arreaga MD 12/09/24 17:43:
I saw and examined the patient.
The NETWORK CONTROL TECHNICIAN's note was reviewed and I agree with the note.
Comment: He is sitting up in chair feeling ok.On exam bradycardic with regular rhythm, cta b/l abd soft, no le edema. Review of tele shows bradycardia mostly in 40-50's even during times of hypotension. Additionally episodes of jcn rhythm. OVerall
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 That said HR is not responsive to activity or hypotension. He may benefit from pacer with higher set rate. I cannot garauntee it but it may help. He would like to discuss with
op cardiology. As this is elective, this is reasonable. Continue increased midodrine. Continue lifestyle modificaitons: TEDs, fluids, salt loading, abd binder, sleep on wedge, careful change in position, etc. IF lh sit and cross legs and clench
buttocks.
He will call our office if he would like to pursue ppm as he doesn't want to go to [place] for procedure.
Original Note:
Today's Communication / Plan
-
Continue increased dose midodrine
Follow telemetry
Monitor orthos
Add compression socks and abdominal binder
Encourage PO fluids, which I did
discussed with nursing
Impression / Plan
-
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
Outpatient senior tax accountant: Dr. Zoltan Denson ([place]), records have been requested
Presyncope
-He endorses weakness without loss of consciousness, sounds presyncopal. Likely due to orthostatic hypertension, autonomic dysfunction in setting of amyloid
-Stop Attruby as he feels worse since starting
-on midodrine 15 mg PO TID. Just started yesterday. Continue and monitor.
-encourage PO fluids (I did), BLE compression socks added. Will also add abdominal binder.
Bradycardia:
-some periods of junctional bradycardia, no severe bradycardia or advanced heart block. No symptoms. Follow telemetry. Avoid any AV leonie agents.
Knee pain
-He thinks it is a gout flare
-Treatment per primary
Abnormal troponin
-Suspect acute non-ischemic myocardial injury in setting of amyloid and orthostatic hypotension.
-Trop downtrended. ECG nonischemic. Asymptomatic.
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
CKD, baseline unknown, await records
Incomplete right bundle branch block, while in junctional rhythm
Thyroid nodule, TSH normal, per primary
Asthma, no acute exacerbation
Subjective:
Feeling fine, but hasn't been walking due to orthostatic BP's.
Physical Exam
Vital Signs/Labs
Vital Signs
Temp Pulse Resp BP Pulse Ox
98.9 F 56 14 96/72 98
12/09/24 10:53 12/09/24 10:53 12/09/24 10:53 12/09/24 10:53 12/09/24 10:53
12/09/24 07:52
12/09/24 07:52
Magnesium 2.3 mg/dl (1.6-2.3) 12/07/24 07:14
TSH 2.13 uIU/ml (0.47-4.68) 12/07/24 07:14
12/06/24
11:50
Pbp-G-Apezaxeidbj Pept 1800
LAB Results
12/06/24
15:30
Troponin I 0.079 H*
Physical Exam
Constitutional: No acute distress
EENT: Anicteric
Cardiovascular: Rhythm & rate is regular
Respiratory: Respiratory effort normal and Lungs clear to auscul.
Neuro/Psych: AO x 3
Data Reviewed
-
Date of Service: December 09, 2024
EKG: Other (telemetry SB, junctional rhythm at times)
[2024-12-09] MEDS: HEPARIN SC (23:08)
[2024-12-10 03:46] VITALS: BP 115/69
[2024-12-10 07:05] VITALS: BP 104/55
[2024-12-10] MEDS: ProAmatine 15 MG PO ×2 (07:35→12:12)
[2024-12-10] MEDS: LAMICTAL 50 MG PO (07:36)
[2024-12-10] MEDS: COLCHICINE 0.6 MG PO (07:37)
[2024-12-10] MEDS: THERAGRAN 1 TABLET PO (07:38)
[2024-12-10] MEDS: HEPARIN 5000 UNITS SC (07:39)
[2024-12-10 11:05] VITALS: BP 117/80; BP 128/70; BP 154/77; BP 87/54; BP 89/57; PULSE 57; PULSE 66; PULSE 81; O2SAT 100
--- NOTE | 2024-12-10 11:16 | W.PN.CD ---
Addendum entered and electronically signed by Armani Medina MD 12/10/24 11:36:
74 yo make with cardiac amyloid, autonomic dysfunction, bradycardia. Feels better on increased midodrine 15mg tid. Exam with RRR, no murmurs, no edema. Tele: SR, SB, some junctional escape.
Continue midodrine 15mg tid. Hold Attruby until he sees his supervisor contact lens.
No urgent need for inpatient PPM. He plans to discuss his bradycardia with his outpatient supervisor contact lens.
Original Note:
Today's Communication / Plan
-
Feeling well. Tele stable. Ambulating without difficulty. Continue increased midodrine, as well as compression therapy. Follow-up with OP supervisor contact lens regarding his amyloid treatment. He will call us if he elects for pacemaker after discussion with
his supervisor contact lens.
Impression / Plan
-
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
Outpatient supervisor contact lens: Dr. Zoltan Denson ([place])
Presyncope
-weakness without loss of consciousness, sounds presyncopal. Likely due to orthostatic hypertension, autonomic dysfunction in setting of amyloid
-Stop Attruby as he feels worse since starting- follow up on this with OP supervisor contact lens
-continue increased midodrine, encourage PO fluids/sodium liberalization, BLE compression socks, abdominal binder.
Bradycardia:
-some periods of junctional bradycardia, no severe bradycardia or advanced heart block. No symptoms. Avoid any AV leonie agents. Bradycardia with rates 40's-60's, even during hypotension. HR is not responsive to activity or hypotension. He may
benefit from pacer with higher set rate. Not guaranteed, but it may help. He would like to discuss with OP cardiology. As this is elective, this is reasonable. He was given contact info for our office (Dr. Iglesias)- Dr. Arreaga discussed with him
yesterday.
Abnormal troponin
-Suspect acute non-ischemic myocardial injury in setting of amyloid and orthostatic hypotension.
-Trop downtrended. ECG nonischemic. Asymptomatic.
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
CKD, baseline unknown, await records
Incomplete right bundle branch block, while in junctional rhythm
Thyroid nodule, TSH normal, per primary
Asthma, no acute exacerbation
Subjective:
He is feeling well. He ambulated with PT and did well. He stood and talked to me for several minutes and had no symptoms.
Discussed with primary team
Physical Exam
Vital Signs/Labs
Vital Signs
Temp Pulse Resp BP Pulse Ox
98.1 F 61 18 128/70 98
12/10/24 11:05 12/10/24 11:05 12/10/24 11:05 12/10/24 11:05 12/10/24 11:05
12/09/24 07:52
12/09/24 07:52
Magnesium 2.3 mg/dl (1.6-2.3) 12/07/24 07:14
TSH 2.13 uIU/ml (0.47-4.68) 12/07/24 07:14
12/06/24
11:50
Ltu-Y-Dqszgsptqbc Pept 1800
Physical Exam
Constitutional: No acute distress
EENT: Anicteric
Cardiovascular: Rhythm & rate is regular (bradycardia)
Respiratory: Respiratory effort normal and Lungs clear to auscul.
Neuro/Psych: AO x 3
Data Reviewed
-
Date of Service: December 10, 2024
EKG: Other (SB/SR, periods of junctional rhythm)
--- NOTE | 2024-12-10 11:25 | W.PN.HOSP.TC ---
Today's Communication/Plan
-
Discharge home
Assessment / Plan
Assessment / Plan
Impression;
Patient 72 years old with a history of a myeloid cardiomyopathy, orthostatic hypotension, CKD, asthma, mood disorder who came to the ER with presyncopal event, denies loss of consciousness.
Found to have positive orthostatic, cardiology consulted, cardiology recommending to increase midodrine to 15 mg 3 times daily, also patient noted to have acute gout flareup on the right knee and started on colchicine, physical recommended home PT.
Episodes of junctional rhythm, discussed with cardiology, plan for discharge and follow-up with outpatient.
Assessment/plan
syncopal episode
Long history of orthostatic hypotension
Contributed with dehydration and low oral intake.
Creatinine was elevated which improved
WBC 12.9, Trop 0.096 & 0.079, pro-BNP 1800
EKG: SINUS BRADYCARDIA
SEPTAL INFARCT , AGE UNDETERMINED
ST and T WAVE ABNORMALITY, CONSIDER INFERIOR ISCHEMIA
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
Seen by cardiology.
Echocardiogram shows:
Moderate concentric left ventricular hypertrophy.
Left ventricular ejection fraction is 55-60%.
Thickened aortic valve with normal leaflet excursion.
Trace mitral regurgitation.
Mild tricuspid regurgitation.
With strain patterna nd LVH consider amyloidosis.
4/
Still positive orthostatics, midodrine increased
Physical therapy recommending home PT
4/2
Continue midodrine 15 mg 3 times daily.
Discharge home today with home physical
4/3
Discharge home today
Acute right knee pain possible gout flareup.
Started on colchicine and Toradol.
Pain improved
Amyloid cardiomyopathy
- continue acoramidis
Orthostatic hypotension
- continue midodrine 10 mg 3 times daily
- Compression socking
Acute renal failure on CKD stage IIIa
Creatinine was elevated at 1.7 on admission.
Improved
History of asthma
- continue Dulera
Mood disorder
- continue Lamictal
CODE STATUS: Full code
DVT prophylaxis: Heparin
Diet: Regular diet
Total time spent on today's encounter was 65 minutes which included time spent in counseling the patient/family regarding diagnosis and treatment plan as listed above, goals of care, and symptom management. Case was discussed with nursing staff,
specialists, and care coordinators/case management. All labs and imaging personally reviewed by me. Remainder the time spent in detailed review of previous records, lab data, imaging, and other medical provider documentation.
Anticipated Discharge: Today
Subjective/Interval History
-
Date of Service: December 10, 2024
Patient seen and examined at bedside, denies any chest pain or shortness of breath, no abdominal pain, no nausea, no vomiting, no diarrhea or constipation.
Cleared for discharge as per cardiology.
Objective Data
-
Vital Signs:
Vital Signs
Temp Pulse Resp BP Pulse Ox
98.1 F 61 18 128/70 98
12/10/24 11:05 12/10/24 11:05 12/10/24 11:05 12/10/24 11:05 12/10/24 11:05
I&O
12/09/24 12/10/24 12/11/24
06:59 06:59 06:59
Intake Total 1740 / 1740 1200 / 1200
Output Total 800 / 800 2100 / 2100
Balance 940 / 940 -900 / -900
Physical Exam
-
General: Well Developed, Well Nourished, No Apparent Distress and Comfortable
HEENT: Normocephalic, Atraumatic, Moist Mucous Membranes, No Ptosis, PERRLA and Nose Appears Normal
Respiratory: Clear to Auscultation and Non Labored Respirations
Cardiac: Regular Rhythm and S1/S2
Breast: Deferred by me
GI: Soft, Nontender, Nondistended and Normal Bowel Sounds
Genito-urinary: No Costovertebral Tender
Musculoskeletal: Other (Improved right knee tenderness)
Skin: Warm
Neuro: Awake, Alert, Oriented, AO x 3 and No Motor Deficits
Psych: Calm
Data Reviewed
-
Diagnostic Radiology: Image personally visualized and interpreted and Report Reviewed by me
CT Scan: Image personally visualized and interpreted and Report Reviewed by me
Ultrasound: Image personally visualized and interpreted and Report Reviewed by me
MRI: Image personally visualized and interpreted and Report Reviewed by me
Medical Tests (Nuc Med, Echo etc): Image personally visualized and interpreted and Report Reviewed by me
Labs: Labs Reviewed by me
Old Records: Reviewed
--- NOTE | 2024-12-10 11:32 | CM ---
Patient seen at bedside
discharge today
IMM explained & signed in chart
PLAN: Home with [facility]
to transport
[2024-12-10 14:57] VITALS: BP 129/68
== END 2024-12-10 15:03 | disposition home health service (06) | DRG 312 ==
LOC: 3 WEST ACU 15:49
PROVIDERS: Emergency Medicine; Nurse Practitioner Family; Physician Assistant; ADMITTING PHYSICIAN Internal Medicine; ATTENDING PHYSICIAN General Practice; EMERGENCY PHYSICIAN Emergency Medicine; FAMILY PHYSICIAN Student in an Organized Health Care Education/Training Program; OTHER PHYSICIAN Internal Medicine
DX: I95.1 Orthostatic hypotension (principal); E85.4 Organ-limited amyloidosis; I43 Cardiomyopathy in diseases classified elsewhere; I5A Non-ischemic myocardial injury (non-traumatic); E86.0 Dehydration; N18.31 Chronic kidney disease, stage 3a; J45.909 Unspecified asthma, uncomplicated; F39 Unspecified mood [affective] disorder; I45.10 Unspecified right bundle-branch block; M10.9 Gout, unspecified; Z79.899 Other long term (current) drug therapy; Z11.52 Encounter for screening for COVID-19
CPT/HCPCS: 70450; 71275; 73564; 80048; 80053; 81003; 82533; 83735; 83880; 84443; 84484; 85025; 85027; 87502; 87811; 93005; 93306; 96360; 97116; 97163; 97530; 99285; Q9967